=== PATIENT | male | born 1990 | race Two or more races ===

== ENCOUNTER 2018-02-11 15:47 | Emergency (ER) | payer OTHER ==
[2018-02-11 15:53] VITALS: BP 130/94; PULSE 84; TEMP 97.9; BMI 28.1
[2018-02-11] MEDS ORDERED: RABIES IMMUNE GLOBULIN 300 UNITS/1 ML VIAL IM ONE (16:26)
[2018-02-11] MEDS ORDERED: DIPHTH,PERTUSS(ACELL),TET 0.5 ML DISP.SYRIN IM ONE (16:26)
[2018-02-11] MEDS ORDERED: RABIES VACCINE (PCEC)/PF 2.5 UNIT/VIAL IM ONE (16:26)
--- NOTE | 2018-02-11 17:19 | PDOC ---
History of Present Illness - General Chief Complaint: Bite Stated Complaint: BITE Time Seen by Provider: 02/11/18 15:56 History Source: Patient Exam Limitations: No Limitations - History of Present Illness Initial Comments: 02/11/18 17:42 Patient is a 27-year-old male past medical history who presents to the emergency department today for a dog bite to his right calf. Patient states he works at the [employer]. 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 The he states that he was unable to get rabies vaccination proof and he will not be able to follow- up with the dog. Patient is requesting rabies vaccination and tetanus vaccination at this time as he does not remember his last tetanus shot. Past History - Travel Traveled outside of the country in the last 30 days: No Close contact w/someone who was outside of country & ill: No - Past Medical History Allergies/Adverse Reactions: Allergies Allergy/AdvReac Type Severity Reaction Status Date / Time No Known Allergies Allergy Verified 02/11/18 15:50 Home Medications: Ambulatory Orders Amox-Tr/K Cl [Augmentin - 875Mg Tablet] 1 tab PO BID #20 tablet 02/11/18 COPD: No - Immunization History Immunization Up to Date: No - Suicide/Smoking/Psychosocial Hx Smoking History: Never smoked Review of Systems - Review of Systems Able to Perform ROS?: Yes Comments:: 02/11/18 17:13 CONSTITUTIONAL: Absent: fever, chills, diaphoresis, generalized weakness, malaise, loss of appetite HEENT: Absent: rhinorrhea, nasal congestion, throat pain, throat swelling, difficulty swallowing, mouth swelling, ear pain, eye pain, visual Changes CARDIOVASCULAR: Absent: chest pain, loss of consciousness, palpitations, irregular heart rate, peripheral edema RESPIRATORY: Absent: cough, shortness of breath, dyspnea with exertion, orthopnea, wheezing, stridor, hemoptysis GASTROINTESTINAL: Absent: abdominal pain, abdominal distension, nausea, vomiting, diarrhea, constipation, melena, hematochezia GENITOURINARY: Absent: dysuria, frequency, urgency, hesitancy, hematuria, flank pain, genital pain MUSCULOSKELETAL: Absent: myalgia, arthralgia, joint swelling SKIN: Dog bite to R lateral calf. Absent: rash, itching, pallor HEMATOLOGIC/IMMUNOLOGIC: Absent: easy bleeding, easy bruising, lymphadenopathy, frequent infections ENDOCRINE: Absent: unexplained weight gain, unexplained weight loss, heat intolerance, cold intolerance NEUROLOGIC: Absent: headache, focal weakness or paresthesias, dizziness, unsteady gait, seizure, mental status changes, bladder or bowel incontinence PSYCHIATRIC: Absent: anxiety, depression, suicidal or homicidal ideation, hallucinations. Is the patient limited Ukrainian proficient: No *Physical Exam - Vital Signs Last Vital Signs Temp Pulse Resp BP Pulse Ox 97.9 F 84 16 130/94 99 02/11/18 15:51 02/11/18 15:51 02/11/18 15:51 02/11/18 15:51 02/11/18 15:51 - Physical Exam Comments: 02/11/18 17:17 GENERAL: The patient is awake, alert, and fully oriented, in no acute distress. HEAD: Normal with no signs of trauma. EYES: Pupils equal, round and reactive to light, extraocular movements intact, sclera anicteric, conjunctiva clear. EXTREMITIES: Normal range of motion, no edema. NEUROLOGICAL: Normal speech, normal gait. PSYCH: Normal mood, normal affect. SKIN: 1cm superficial laceration to the R lateral calf. Bleeding controlled. No sutures required. Warm, Dry, normal turgor, no rashes or lesions noted. ED Treatment Course - Medications Given in the ED: ED Medications Discontinued Medications Generic Name Dose Route Start Last Admin Trade Name Freq PRN Reason Stop Dose Admin Diphtheria/Tetanus/Acell Pertussis 0.5 ml 02/11/18 16:26 02/11/18 17:02 Boostrix - IM 02/11/18 16:27 0.5 ml .ONCE ONE Administration Rabies Immune Globulin 1,680 unit 02/11/18 16:26 02/11/18 17:04 Hyperrab 300 Unit/Ml Vial 20 unit/kg (1680 unit) 02/11/18 16:27 1,680 unit IM Administration ONCE ONE Protocol Rabies Vaccine 2.5 unit 02/11/18 16:26 02/11/18 17:04 Rabavert Rabies Vaccine IM 02/11/18 16:27 2.5 unit .ONCE ONE Administration Medical Decision Making - Medical Decision Making 02/11/18 17:44 Patient is 27-year-old male who was bit by a dog this afternoon. -Wound is approximately 1 cm superficial and linear to the right lateral calf. Bleeding is controlled. -Rabies vaccination and immunoglobulin given at this time. -Tetanus vaccination updated. -Augmentin started prophylactically. -Discharge home with rabies vaccination schedule. -I discussed the physical exam findings, ancillary test results and final diagnoses with the patient. I answered all of the patient's questions. The patient was satisfied with the care received and felt comfortable with the discharge plan and treatment plan. The Patient agrees to follow up with the primary care physician/specialist within 24-72 hours. Return precautions were given. *DC/Admit/Observation/Transfer Diagnosis at time of Disposition: Need for rabies vaccination Dog bite Qualifiers: Encounter type: initial encounter Qualified Code(s): W54.0XXA - Bitten by dog, initial encounter - Discharge Dispostion Disposition: HOME Condition at time of disposition: Stable Decision to Admit order: No - Prescriptions Prescriptions: Amox-Tr/K Cl [Augmentin - 875Mg Tablet] 1 tab PO BID #20 tablet - Referrals - Patient Instructions Printed Discharge Instructions: DI for Rabies Vaccine Additional Instructions: You were treated for your dog bite today with rabies vaccinations. Please follow the rabies schedule your given for your upcoming shots. He needs to return on Tuesday, February 14 for your next injection. Please take the Augmentin twice a day for the next 10 days to help prevent infection. Your tetanus shot was updated today. Return to emergency department sooner if the site shows any sign of infection including redness around the site, pus, if you have develop fevers or give any changes in your symptoms. - Post Discharge Activity Forms/Work/School Notes: Back to Work, Rabies Vaccination F/U [facility].
== END 2018-02-11 17:29 | disposition home or self-care (01) ==
LOC: JERFT 15:47
PROC: 3E0234Z Introduction of Serum, Toxoid and Vaccine into Muscle, Percutaneous Approach (ICD-10-PCS; principal; 2018-02-11)
PROC: 3E0234Z Introduction of Serum, Toxoid and Vaccine into Muscle, Percutaneous Approach (ICD-10-PCS; 2018-02-11)
PROC: 3E0234Z Introduction of Serum, Toxoid and Vaccine into Muscle, Percutaneous Approach (ICD-10-PCS; 2018-02-11)
DX: S80.871A Other superficial bite, right lower leg, initial encounter (principal); W54.0XXA Bitten by dog, initial encounter; Y93.89 Activity, other specified; Y92.098 Other place in other non-institutional residence as the place of occurrence of the external cause; Y99.0 Civilian activity done for income or pay
CPT/HCPCS: 90375; 90675; 90715; 99281-25

== ENCOUNTER 2018-02-14 15:40 | Emergency (ER) | payer OTHER ==
[2018-02-14 15:45] VITALS: BP 134/89; PULSE 83; TEMP 98; BMI 28.1
--- NOTE | 2018-02-14 15:45 | PDOC ---
Rapid Medical Evaluation Chief Complaint: Revisit,Rabies Injection Time Seen by Provider: 02/14/18 15:44 Medical Evaluation: Allergies Allergy/AdvReac Type Severity Reaction Status Date / Time No Known Allergies Allergy Verified 02/11/18 15:50 02/14/18 15:44 I have performed a brief in person evaluation of the patient. The patient presents with a CC of: Pt here for second rabies vaccination PE: Skin: No visible lesions Lungs: Clear Heart:RRR MS: Moves all extremities without difficulty Neuro: Alert and oriented Psych: Appropriate affect The patient will proceed to the [facility] for further evaluation. Discharge Disposition - Diagnosis Rabies contact - Referrals - Patient Instructions - Post Discharge Activity
[2018-02-14] MEDS ORDERED: RABIES VACCINE (PCEC)/PF 2.5 UNIT/VIAL IM ONE (15:54)
--- NOTE | 2018-02-14 16:11 | PDOC ---
History of Present Illness - General Chief Complaint: Revisit,Rabies Injection Stated Complaint: RABIES SHOT Time Seen by Provider: 02/14/18 15:44 - History of Present Illness Initial Comments: 02/14/18 16:08 27-year-old male presents for his second rabies vaccination from a bite 3 days ago he has no complaints Past History - Past Medical History Allergies/Adverse Reactions: Allergies Allergy/AdvReac Type Severity Reaction Status Date / Time No Known Allergies Allergy Verified 02/14/18 15:46 Home Medications: Ambulatory Orders Amox-Tr/K Cl [Augmentin - 875Mg Tablet] 1 tab PO BID #20 tablet 02/11/18 COPD: No - Immunization History Immunization Up to Date: No - Suicide/Smoking/Psychosocial Hx Smoking History: Never smoked Review of Systems - Review of Systems Integumentary: Yes: See HPI *Physical Exam - Vital Signs Last Vital Signs Temp Pulse Resp BP Pulse Ox 98 F 83 18 134/89 98 02/14/18 15:43 02/14/18 15:43 02/14/18 15:43 02/14/18 15:43 02/14/18 15:43 - Physical Exam Comments: 02/14/18 16:09 HEAD: NC/AT EYES: Conjuntiva clear MS: Full ROM in all joints without edema NEUROLOGIC: No gross sensory or motor deficits, NVID SKIN: Normal color and temperature no lesions or rashes There is a puncture wound on the lateral aspect of the right calf without indication of secondary infection the wound appears to be healing well with eschar *DC/Admit/Observation/Transfer Diagnosis at time of Disposition: Rabies contact - Discharge Dispostion Disposition: HOME Condition at time of disposition: Stable Decision to Admit order: No - Referrals - Patient Instructions Printed Discharge Instructions: DI for Rabies Vaccine Additional Instructions: Return on 02/18/18 for your second rabies vaccination. Sooner if problems develop - Post Discharge Activity
== END 2018-02-14 16:16 | disposition home or self-care (01) ==
LOC: JERFT 15:40
PROC: 3E0234Z Introduction of Serum, Toxoid and Vaccine into Muscle, Percutaneous Approach (ICD-10-PCS; principal; 2018-02-14)
DX: Z20.3 Contact with and (suspected) exposure to rabies (principal); S81.851D Open bite, right lower leg, subsequent encounter; W54.0XXD Bitten by dog, subsequent encounter
CPT/HCPCS: 90675; 99281-25

== ENCOUNTER 2018-02-22 18:03 | Emergency (ER) | payer OTHER ==
[2018-02-22] MEDS ORDERED: RABIES VACCINE (PCEC)/PF 2.5 UNIT/VIAL IM ONE (18:35)
--- NOTE | 2018-02-22 18:35 | PDOC ---
Rapid Medical Evaluation Time Seen by Provider: 02/22/18 18:23 Medical Evaluation: Allergies Allergy/AdvReac Type Severity Reaction Status Date / Time No Known Allergies Allergy Verified 02/14/18 15:46 02/22/18 18:33 I have performed a brief in-person evaluation of this patient. The patient presents with a chief complaint of: needs rabies shot #3 Pertinent physical exam findings: PE- WNL I have ordered the following: rabies vaccine The patient will proceed to the ED for further evaluation. Discharge Disposition - Diagnosis Need for rabies vaccination - Referrals - Patient Instructions - Post Discharge Activity
[2018-02-22 18:46] VITALS: BP 135/75; PULSE 65; TEMP 98.2; BMI 27.3
--- NOTE | 2018-02-22 19:13 | PDOC ---
History of Present Illness - General Chief Complaint: Revisit,Rabies Injection Stated Complaint: REVISIT, RABIES INJECTION Time Seen by Provider: 02/22/18 18:23 History Source: Patient Exam Limitations: No Limitations - History of Present Illness Initial Comments: 02/22/18 19:18 Pt is a 27 y/o M who presents to the ED for his 3rd rabies shot. Pt was in the ED on 02/14/18 for his third shot and was told to return on 02/22. He should have returned on 02/18. Pt has no complaints at this time. Past History - Travel Traveled outside of the country in the last 30 days: No Close contact w/someone who was outside of country & ill: No - Past Medical History Allergies/Adverse Reactions: Allergies Allergy/AdvReac Type Severity Reaction Status Date / Time No Known Allergies Allergy Verified 02/22/18 18:43 Home Medications: Ambulatory Orders NK [No Known Home Medication] 02/22/18 COPD: No - Immunization History Immunization Up to Date: No - Suicide/Smoking/Psychosocial Hx Smoking History: Never smoked Hx Alcohol Use: No Drug/Substance Use Hx: No Review of Systems - Review of Systems Able to Perform ROS?: Yes Is the patient limited Kazakh proficient: No Constitutional: No: Chills, Fever, Weakness Integumentary: Yes: Other (scap to R lateral calf). No: Erythema, Rash All Other Systems: Reviewed and Negative *Physical Exam - Vital Signs Last Vital Signs Temp Pulse Resp BP Pulse Ox 98.2 F 65 16 135/75 100 02/22/18 18:43 02/22/18 18:43 02/22/18 18:43 02/22/18 18:43 02/22/18 18:43 - Physical Exam Comments: 02/22/18 19:14 GENERAL: The patient is awake, alert, and fully oriented, in no acute distress. HEAD: Normal with no signs of trauma. EYES: Pupils equal, round and reactive to light, extraocular movements intact, sclera anicteric, conjunctiva clear. EXTREMITIES: Normal range of motion, no edema. NEUROLOGICAL: Normal speech, normal gait. PSYCH: Normal mood, normal affect. SKIN: Warm, Dry, normal turgor, no rashes or lesions noted. ED Treatment Course - Medications Given in the ED: ED Medications Discontinued Medications Generic Name Dose Route Start Last Admin Trade Name Freq PRN Reason Stop Dose Admin Rabies Vaccine 2.5 unit 02/22/18 18:35 02/22/18 19:05 Rabavert Rabies Vaccine IM 02/22/18 18:36 2.5 unit .ONCE ONE Administration Medical Decision Making - Medical Decision Making 02/22/18 19:20 Pt is a 27 y/o M who presents to the ED for his third rabies vaccination -Rabies shot given -Pt placed back on original rabies schedule. Told to return on 02/25/18 for the last injection -Original wound is healed. -DC home -I discussed the physical exam findings, ancillary test results and final diagnoses with the patient. I answered all of the patient's questions. The patient was satisfied with the care received and felt comfortable with the discharge plan and treatment plan. The Patient agrees to follow up with the primary care physician/specialist within 24-72 hours. Return precautions were given. *DC/Admit/Observation/Transfer Diagnosis at time of Disposition: Need for rabies vaccination - Discharge Dispostion Disposition: HOME Condition at time of disposition: Stable Decision to Admit order: No - Referrals - Patient Instructions Printed Discharge Instructions: DI for Rabies Vaccine Additional Instructions: You were given your third rabies shot today. This was given 4 days late. Please return on Tuesday02/25/18 for your final rabies shot. Return to the ED for any new or worsening symptoms. - Post Discharge Activity Forms/Work/School Notes: Rabies Vaccination F/U [facility].
== END 2018-02-22 19:27 | disposition home or self-care (01) ==
LOC: JERFT 18:03
PROC: 3E0234Z Introduction of Serum, Toxoid and Vaccine into Muscle, Percutaneous Approach (ICD-10-PCS; principal; 2018-02-22)
DX: Z23 Encounter for immunization (principal); Z20.3 Contact with and (suspected) exposure to rabies
CPT/HCPCS: 90675; 99281-25

== ENCOUNTER 2018-02-25 07:59 | Emergency (ER) | payer OTHER ==
[2018-02-25 08:04] VITALS: BP 121/76; PULSE 62; TEMP 98.3; BMI 28.1
--- NOTE | 2018-02-25 08:13 | PDOC ---
History of Present Illness - General Chief Complaint: Revisit,Rabies Injection Stated Complaint: FINAL RABIES SHOT Time Seen by Provider: 02/25/18 08:12 History Source: Patient Exam Limitations: No Limitations - History of Present Illness Initial Comments: Pt is a 27 y/o M who presents to the ED for his 4th rabies shot. Pt was in the ED on 02/22/18 for his third shot and was told to return on 02/24. He should have had his 3rd shot on 02/18. Pt has no complaints at this time. Past History - Past Medical History Allergies/Adverse Reactions: Allergies Allergy/AdvReac Type Severity Reaction Status Date / Time No Known Allergies Allergy Verified 02/25/18 08:04 Home Medications: Ambulatory Orders NK [No Known Home Medication] 02/22/18 COPD: No - Immunization History Immunization Up to Date: No - Suicide/Smoking/Psychosocial Hx Smoking History: Never smoked Hx Alcohol Use: No Drug/Substance Use Hx: No Review of Systems - Review of Systems Able to Perform ROS?: Yes Constitutional: No: Symptoms Reported Integumentary: No: Symptoms Reported *Physical Exam - Vital Signs Last Vital Signs Temp Pulse Resp BP Pulse Ox 98.3 F 62 18 121/76 98 02/25/18 08:02 02/25/18 08:02 02/25/18 08:02 02/25/18 08:02 02/25/18 08:02 - Physical Exam Comments: GENERAL: The patient is awake, alert, and fully oriented, in no acute distress. HEAD: Normal with no signs of trauma. EYES: Pupils equal, round and reactive to light, extraocular movements intact, sclera anicteric, conjunctiva clear. EXTREMITIES: Normal range of motion, no edema. NEUROLOGICAL: Normal speech, normal gait. PSYCH: Normal mood, normal affect. SKIN: Warm, Dry, normal turgor, no rashes or lesions noted. General Appearance: Yes: Nourished Medical Decision Making - Medical Decision Making A/P: 27 y/o male here for his 4th rabies shot. Gave 4th injection without incident. No more injections needed Patient instructed to return to the ER with any concerning symptoms. The patient verbalizes understanding of all instructions, has no further questions and is awaiting discharge. *DC/Admit/Observation/Transfer Diagnosis at time of Disposition: Need for rabies vaccination - Discharge Dispostion Disposition: HOME Condition at time of disposition: Good - Referrals - Patient Instructions Printed Discharge Instructions: DI for Rabies Vaccine Additional Instructions: You were given your 4th rabies shot today. No more shots are required Return to the ED for any new or worsening symptoms. - Post Discharge Activity
[2018-02-25] MEDS ORDERED: RABIES VACCINE (PCEC)/PF 2.5 UNIT/VIAL IM ONE (08:15)
== END 2018-02-25 08:30 | disposition home or self-care (01) ==
LOC: JERFT 07:59
PROC: 3E0234Z Introduction of Serum, Toxoid and Vaccine into Muscle, Percutaneous Approach (ICD-10-PCS; principal; 2018-02-25)
DX: Z20.3 Contact with and (suspected) exposure to rabies (principal); W54.0XXD Bitten by dog, subsequent encounter
CPT/HCPCS: 90675; 99281-25

== ENCOUNTER 2020-07-25 06:18 | Emergency (ER) | payer OTHER ==
[2020-07-25 06:49] VITALS: BMI 28.8
[2020-07-25 07:14] LABS: BASO % 0.4 % (0-2.0); EOS % 1.4 % (0-4.5); HEMATOCRIT 44.6 % (35.4-49); HEMOGLOBIN 15.8 GM/dL (11.7-16.9); LYMPH % 36.7 % (8-40); MCH 31.1 pg (25.7-33.7); MCHC 35.4 g/dl (32.0-35.9); MEAN CELL VOLUME 87.8 fl (80-96); MEAN PLT VOLUME 8.9 fl (7.5-11.1); MONO % 9.1 % (3.8-10.2); NEUT % 52.4 % (42.8-82.8); PLATELET COUNT 207 K/MM3 (134-434); RBC 5.07 M/mm3 (4.00-5.60); RDW 13.7 % (11.9-15.9); WHITE BLOOD COUNT 6.2 K/mm3 (4.0-10.0)
[2020-07-25 07:17] LABS: CHLORIDE 102 mmol/L (98-107); SODIUM 137 mmol/L (136-145)
[2020-07-25 07:21] LABS: ALBUMIN 4.1 g/dl (3.4-5.0); ANION GAP 4 MMOL/L (8-16); BLOOD UREA NITROGEN 22.6 mg/dL (7-18); CALCIUM 9.3 mg/dL (8.5-10.1); CO2 31 mmol/L (21-32)
[2020-07-25 07:22] LABS: GLUCOSE,RANDOM 129 mg/dL (74-106)
[2020-07-25] MEDS ORDERED: SODIUM CHLORIDE 0.9% 500 ML INFUS.BAG IV ONE (07:23)
[2020-07-25 07:24] LABS: CREATININE 1.2 mg/dL (0.55-1.3); SGOT/AST 17 U/L (15-37); SGPT/ALT 30 U/L (13-61)
[2020-07-25 07:26] LABS: BILIRUBIN,TOTAL 0.6 mg/dL (0.2-1); TOT PROT 7.1 g/dl (6.4-8.2)
[2020-07-25 07:27] LABS: ALK PHOS 72 U/L (45-117)
[2020-07-25 08:21] VITALS: BP 149/75; PULSE 78; TEMP 98
== END 2020-07-25 08:06 | disposition left against medical advice (07) ==
LOC: JER 06:18
DX: R55 Syncope and collapse (principal)
CPT/HCPCS: 36415; 80053; 84484; 85025; 93005; 93010; 99283-25